=== PATIENT | male | born 1945 | race Caucasian/White ===

== ENCOUNTER 2018-08-20 10:50 | Day surgery (SDC) | payer MEDICARE, OTHER, SELFPAY ==
--- NOTE | 2018-08-20 | DI.RAD.S_ITS ---
PROCEDURE: XR LUMBAR SPINE 2-3V INDICATIONS: MICRODISCECTOMY TECHNIQUE: 2 views of the lumbar spine were acquired. COMPARISON: None. FINDINGS: Bones: 5 [id number] vertebrae are present. There is normal bony alignment. No vertebral body compression fractures. No suspicious bony lesions. The access port is located to the left of midline at the L2-L3 posterolateral facet joint level. Soft tissues: Overlying bowel gas pattern is normal. No suspicious soft tissue calcifications. IMPRESSION: L2-L3 left posterolateral port positioning for microdiscectomy. Dictated by: Carlos Cr M.D. on 08/25/2018 at 14:43 Approved by: Carlos Cr M.D. on 08/25/2018 at 15:19
[2018-08-20 11:18] VITALS: BP 143/92; PULSE 84; RESP 16; TEMP 36.6; O2SAT 97; BMI 30.2
--- NOTE | 2018-08-20 12:20 | PM.PREOP ---
Pre-operative Note Interval Note Pre-op Check: Yes History & Physical Reviewed by Physician, Yes Exam Performed and Yes History & Physical exam performed today by Physician Changes: No
--- NOTE | 2018-08-20 12:32 | SUR.OPER ---
Prone on spine table, head in foam head support, padded chest and pelvic supports, gel pad at knees, lower legs supported by pillows; nipples, genitalia and toes free of pressure, arms secured on foam padded arm boards at <90 degrees abduction. Tape over blanket at thigh secured to table.
[2018-08-20] MEDS: CEFAZOLIN 2 GM/100 ML FROZ.PIGGY IV (12:37)
[2018-08-20] MEDS: methylPREDNISolone acet DEPO 40 MG/ML VIAL INJ (13:16)
[2018-08-20] MEDS: BUPIVACAINE 0.25% W/ EPI VIAL 30 ML INJ (13:16)
[2018-08-20 14:00] VITALS: BP 128/85; PULSE 78; RESP 14; TEMP 36.9; O2SAT 96
--- NOTE | 2018-08-20 14:00 | P.OP_ITS ---
Operative Date/Time/Diagnoses Date of procedure: 08/20/18 Time of procedure: 12:55 Pre-op diagnosis: 1. L2-3 spinal stenosis 2. L2-3 spondylosis with radiculopathy Post-op diagnosis: same Procedure & Clinicians Procedure: 1. L2-3 laminectomy with bilateral partial facetectomies 2. Utilization of microsurgical technique and operating microscope Same procedure as scheduled: Yes Indications: Patient has been having chronic back pain and worsening lumbar radiculopathy. Patient failed multiple conservative management with worsening pain weakness and numbness in her lower extremity. Patient has been having difficulty performing activity of daily living. After discussing risks benefits of treatment options, patient elected proceed with surgery. Surgeon: Roderick Subramanian Accounts Payable Coordinator: Nancy Aguilar Click Yes if Unassisted: No Anesthesia Type: General Operative Notes Closure Type: primary Specimen(s): none sent Estimated Blood Loss (mL): 10 Blood products transfused: none Procedure in detail: Patient was seen in the preoperative area. Risks and benefits of the surgery was discussed with the patient. Informed consent was obtained from the patient and placed in the chart. Surgical site was marked. Patient was taken to the operative room. General anesthesia was administered. Prophylactic antibiotic was given to the patient less than 30 min before the incision was made. Patient was placed into a prone position on the Jasbir table. Patient's back was then prepped and draped in the sterile fashion. Time- out was performed at this time. Using AP and lateral C-arm imaging the interval between L2-3 was identified and marked on patient's back. A 1 inch incision 1 in from midline was made on the left side. The fascia was incised in line with skin incision. Globus MARS retractors was placed inside the incision and docked onto the L2 lamina. Using microsurgical technique and operating microscope, a L2-3 laminectomy was performed using a Kerrison rongeur. Liagamentum flavum was resected at the site of the laminotomy. Either side of the dura was exposed. Bilateral partial facetcomies was performed to further decompress the lateral recess. After the laminectomy was completed, the area medial lateral superior and inferior to the area of the laminectomy was inspected and explored using a micro curette. No other impinging structure was identified. The wound was then irrigated with sterile normal saline. 40 mg Depo-Medrol was placed into the epidural space. The deep fascia was closed with 1-0 Vicryl. The subcutaneous tissue was closed with 2-0 Vicryl. The skin was closed with 4- 0 Monocryl. Patient tolerated the procedure well. There were no complications. Patient was transferred recovery room in stable condition. Complications: none Condition: stable Disposition: same day surgery Plan for aftercare: discharge to home
[2018-08-20 14:05] VITALS: BP 125/90; PULSE 76; RESP 14; TEMP 36.9; O2SAT 96
[2018-08-20 14:10] VITALS: BP 131/89; PULSE 76; RESP 14; TEMP 36.6; O2SAT 97
[2018-08-20 14:15] VITALS: BP 118/82; PULSE 76; RESP 14; TEMP 36.6; O2SAT 98
[2018-08-20 14:29] VITALS: BP 120/78; PULSE 80; RESP 14; TEMP 36.6; O2SAT 96
== END 2018-08-20 14:40 | disposition home or self-care (01) ==
PROVIDERS: PCP Family Medicine; Visit Provider Orthopaedic Surgery Orthopaedic Surgery of the Spine
PROC: (CPT 63047; principal; 2018-08-20 13:45)
DX: M48.061 Spinal stenosis, lumbar region without neurogenic claudication (principal); M47.816 Spondylosis without myelopathy or radiculopathy, lumbar region; Z87.891 Personal history of nicotine dependence; Z98.890 Other specified postprocedural states
CPT/HCPCS: 63047; 72100; 76000; J0690; J1030; J1100; J2250; J2405; J2704; J3010

== ENCOUNTER 2019-06-17 07:38 | Inpatient (IN) | payer MEDICARE, OTHER, SELFPAY ==
[2019-06-03 09:51] VITALS: BMI 29.2
[2019-06-17] VITALS (17 sets, daily range): BP systolic 108–153; BP diastolic 66–88; PULSE 60–96; RESP 12–18; TEMP 35.9–37; O2SAT 94–99; BMI 29.2
--- NOTE | 2019-06-17 | DI.RAD.S_ITS ---
PROCEDURE: XR LUMBAR SPINE 2-3V INDICATIONS: L3-4 hemilaminectomy; L5-S1 TLIF w/posterior instru TECHNIQUE: 2 views of the lumbar spine were acquired. COMPARISON: [facility], , XR LUMBAR SPINE 2-3V, 08/20/2018, 13:10. FINDINGS: Spot fluoroscopic intraoperative images demonstrating posterior spinal fixation at L5-S1 and interbody cage graft. There is expected intraoperative alignment. Dictated by: Lazarus Brooks M.D. on 06/17/2019 at 11:19 Approved by: Lazarus Brooks M.D. on 06/17/2019 at 11:20
[2019-06-17] MEDS: LACTATED RINGERS 1,000 ML 42 ML IV ×2 (08:10→09:43)
[2019-06-17] MEDS: CEFAZOLIN 2 GM/100 ML FROZ.PIGGY IV ×2 (08:46→17:13)
[2019-06-17] MEDS: BUPIVACAINE 0.25% W/ EPI 30 ML VIAL INJ (09:41)
[2019-06-17] MEDS: BUPIVACAINE LIPOSOME 266 MG/20 ML VIAL INJ (09:42)
--- NOTE | 2019-06-17 11:38 | PM.OP.1 ---
Operative Date/Time/Diagnoses Date of procedure: 06/17/19 Time of procedure: 07:54 Pre-op diagnosis: 1. L4-5, L5-S1 spinal stenosis 2. L5-S1 hx of laminectomy with epidural scarring 3. L5-S1 spondylosis with radiculopathy Post-op diagnosis: same Procedure & Clinicians Procedure: 1. L5-S1 Postero-lateral and posterior interbody fusion 2. L5-S1 interbody cage placement. 3. L5-S1 decompressive laminectomy with bilateral facetecomies 4. L5-S1 Posterior non-segmental instrumentation 5. L4-5 hemilainectomy 6. Mineral of bone marrow from iliac crest 7. Utilization of microsurgical technique and operating microscope Same procedure as scheduled: Yes Indications: Patient has been having chronic back pain and worsening lumbar radiculopathy. Patient failed multiple conservative management with worsening pain weakness and numbness in her lower extremity. Patient has been having difficulty performing activity of daily living. After discussing risks benefits of treatment options, patient elected proceed with surgery. Surgeon: Roderick Subramanian Consulting Solution Manager: Barb Tang Click Yes if Unassisted: No Anesthesia Type: General Operative Notes Closure Type: primary Specimen(s): none sent Prosthetic devices, grafts, tissues, transplants, or devices: Globus revolve screws, Rise cage Applied: catheter Estimated Blood Loss (mL): 50 Blood products transfused: none Procedure in detail: Patient was seen in the preoperative area. Risks and benefits of the surgery was discussed with the patient. Informed consent was obtained from the patient and placed in the chart. Surgical site was marked. Patient was taken to the operative room. General anesthesia was administered. Prophylactic antibiotic was given to the patient less than 30 min before the incision was made. Patient was placed into a prone position on the Jasbir table. Patient's back was then prepped and draped in the sterile fashion. Time-out was performed at this time. Using AP and lateral C-arm imaging the interval between L4-5 L5-S1 was identified and marked on patient's back. A 2 inch incision 2 in from midline was made on the leftight side first. The fascia was incised in line with skin incision. Globus MARS retractors was placed inside the incision and docked onto the L5 lamina. Using microsurgical technique and operating microscope, a L5 laminectomy and L5-S1 facetectomy was performed using a Kerrison rongeur. The disc space at L5-S1 was identified. And a total diskectomy was performed at L5-S1 level. The endplates were decorticated using a rasp and shaver. The total diskectomy and decortication was performed at L5-S1 level in order to to accomplish a L5-S1 fusion. The local bone from the laminectomy and facetectomy was saved for local bone grafting. After the total diskectomy and decortication was completed, Bio4 bone graft material was combined with local bone that was harvested earlier. At this time, a separate skin is incision was made over the iliac crest. A Jamshidi needle was inserted into the iliac crest through a separate skin incision. 5 cc of bone marrow aspiration was obtained through the separate skin incision using a Jamshidi needle from the iliac crest. The bone marrow aspiration was combined with local bone and the Bio4 bone grafting material. The bone grafting material was placed into the L5-S1 interbody space along with a expandable cage. The cage was expanded to its maximum height using the torque limiting screwdriver. At this time the MARS retractor was redirected over the L4 lamina. Using microsurgical technique and operating microscope, a L4-5 heminectomy was performed using the Kerrison rongeur. The ligamentum flavum was also resected at the side of the hemilaminectomy for further decompression of the epidural space. At this time a mirror image incision was made on the right side. The fascia was incised in line with the skin incision. Globus MARS retractor was inserted and docked onto the L5-S1 posterolateral gutter. Using the power drill, posterior-lateral decortication was performed at L5-S1 level until bleeding cortical bone was identified. The remaining bone grafting material was placed into the L5-S1 posterior lateral gutter he order to accomplish posterolateral fusion at the L5-S1 level. Using the double C-arm technique, pedicle screws were placed into the L5 and S1 pedicles bilaterally. This was done by placing the Jamshidi needle into the pedicles, then placing the guidewires over the Jamshidi needle, and finally placing the cannulated screws over the guidewires bilaterally. After the pedicle screws were placed, 2 titanium rods was locked into the heads of the pedicle screws using locking caps and torque limiting screwdriver. After all the hardware was placed, and confirmed with AP and lateral C-arm imaging, the wound was then irrigated with sterile normal saline and packed with Ray-Terrell gauze for 3 min to accomplish hemostasis. After the gauze was removed the deep fascia was closed with #1 Vicryl suture. The subcutaneous layer was closed with 2-0 Vicryl. The skin was closed with skin mulugeta. Patient tolerated the procedure well. There were no complications.
--- NOTE | 2019-06-17 11:42 | P.OP_ITS ---
Operative Date/Time/Diagnoses Date of procedure: 06/17/19 Time of procedure: 07:54 Pre-op diagnosis: 1. L4-5, L5-S1 spinal stenosis 2. L5-S1 hx of laminectomy with epidural scarring 3. L5-S1 spondylosis with radiculopathy Post-op diagnosis: same Procedure & Clinicians Procedure: 1. L5-S1 Postero-lateral and posterior interbody fusion 2. L5-S1 interbody cage placement. 3. L5-S1 decompressive laminectomy with bilateral facetecomies 4. L5-S1 Posterior non-segmental instrumentation 5. L4-5 hemilainectomy 6. Adona of bone marrow from iliac crest 7. Utilization of microsurgical technique and operating microscope Same procedure as scheduled: Yes Indications: Patient has been having chronic back pain and worsening lumbar radiculopathy. Patient failed multiple conservative management with worsening pain weakness and numbness in her lower extremity. Patient has been having difficulty performing activity of daily living. After discussing risks benefits of treatment options, patient elected proceed with surgery. Surgeon: Roderick Subramanian Management Internship: Barb Tang Click Yes if Unassisted: No Anesthesia Type: General Operative Notes Closure Type: primary Specimen(s): none sent Prosthetic devices, grafts, tissues, transplants, or devices: Globus revolve screws, Rise cage Applied: catheter Estimated Blood Loss (mL): 50 Blood products transfused: none Procedure in detail: Patient was seen in the preoperative area. Risks and benefits of the surgery was discussed with the patient. Informed consent was obtained from the patient and placed in the chart. Surgical site was marked. Patient was taken to the operative room. General anesthesia was administered. Prophylactic antibiotic was given to the patient less than 30 min before the incision was made. Patient was placed into a prone position on the Jasbir table. Patient's back was then prepped and draped in the sterile fashion. Time- out was performed at this time. Using AP and lateral C-arm imaging the interval between L4-5 L5-S1 was identifi ed and marked on patient's back. A 2 inch incision 2 in from midline was made on the leftight side first. The fascia was incised in line with skin incision. Globus MARS retractors was placed inside the incision and docked onto the L5 lamina. Using microsurgical technique and operating microscope, a L5 laminectomy and L5-S1 facetectomy was performed using a Kerrison rongeur. The disc space at L5-S1 was identified. And a total diskectomy was performed at L5- S1 level. The endplates were decorticated using a rasp and shaver. The total diskectomy and decortication was performed at L5-S1 level in order to to accomplish a L5-S1 fusion. The local bone from the laminectomy and facetectomy was saved for local bone grafting. After the total diskectomy and decortication was completed, Bio4 bone graft material was combined with local bone that was harvested earlier. At this time, a separate skin is incision was made over the iliac crest. A Jamshidi needle was inserted into the iliac crest through a separate skin incision. 5 cc of bone marrow aspiration was obtained through the separate skin incision using a Jamshidi needle from the iliac crest. The bone marrow aspiration was combined with local bone and the Bio4 bone grafting material. The bone grafting material was placed into the L5-S1 interbody space along with a expandable cage. The cage was expanded to its maximum height using the torque limiting screwdriver. At this time the MARS retractor was redirected over the L4 lamina. Using microsurgical technique and operating microscope, a L4-5 heminectomy was performed using the Kerrison rongeur. The ligamentum flavum was also resected at the side of the hemilaminectomy for further decompression of the epidural space. At this time a mirror image incision was made on the right side. The fascia was incised in line with the skin incision. Globus MARS retractor was inserted and docked onto the L5-S1 posterolateral gutter. Using the power drill, posterior- lateral decortication was performed at L5-S1 level until bleeding cortical bone was identified. The remaining bone grafting material was placed into the L5-S1 posterior lateral gutter he order to accomplish posterolateral fusion at the L5- S1 level. Using the double C-arm technique, pedicle screws were placed into the L5 and S1 pedicles bilaterally. This was done by placing the Jamshidi needle into the pedicles, then placing the guidewires over the Jamshidi needle, and finally placing the cannulated screws over the guidewires bilaterally. After the pedicle screws were placed, 2 titanium rods was locked into the heads of the pedicle screws using locking caps and torque limiting screwdriver. After all the hardware was placed, and confirmed with AP and lateral C-arm imaging, the wound was then irrigated with sterile normal saline and packed with Ray-Terrell gauze for 3 min to accomplish hemostasis. After the gauze was removed the deep fascia was closed with #1 Vicryl suture. The subcutaneous layer was closed with 2-0 Vicryl. The skin was closed with skin mulugeta. Patient tolerated the procedure well. There were no complications.
[2019-06-17] MEDS: LORazepam 2 MG/ML INJ 0.25 MG IV ×2 (11:45→11:50)
[2019-06-17] MEDS: HYDROMORPHONE 2 MG INJ 0.5 MG IV ×4 (11:45→12:00)
--- NOTE | 2019-06-17 11:46 | PM.PREOP ---
Pre-operative Note Interval Note History & Physical reviewed/Exam performed by Physician: Yes Changes to H&P: No
[2019-06-17] MEDS: fentaNYL 100 MCG/2 ML INJ 50 MCG IV ×2 (12:15→12:20)
--- NOTE | 2019-06-17 14:19 | PC.NURSE ---
Pt with low back surgery, dressing to lower back is cdi. He is awake and oriented. He denies pain. Had 2 apple juices down in recovery and has asked for some coffee. Put on 1.5l of o2 as he was dropping down to 84-88% when falling asleep. Pt denies nausea. CMS wnl and ppx2.
[2019-06-17] MEDS: SODIUM CHLORIDE 0.9% 1,000 ML 100 ML IV (14:47)
[2019-06-17] MEDS: OXYCODONE IR 5 MG TABLET 10 MG PO ×2 (15:31→20:49)
--- NOTE | 2019-06-17 17:08 | PT.IIE ---
Current Diagnoses Other spondylosis with radiculopathy, lumbosacral region (06/17/19) Spinal stenosis, lumbar region without neurogenic claudication (06/17/19) Postlaminectomy syndrome, not elsewhere classified (06/17/19) Surgery Performed Operation Date: 06/17/19 08:45 Actual Procedures p L4-5 Hemilaminectomy; L5-S1 TLIF w/Posterior Instru.(Not Applicable) - Roderick Subramanian MD Surgical History (Last Updated 06/03/19 @ 10:25 by Dary Marks RN) Hx of hernia repair (Acute) Hx of laminectomy (Acute 08/20/18) Hx of laminectomy (Acute ~1987) S/P cervical spinal fusion (Acute 01/20/18) History of appendectomy (Acute) Medical History (Last Updated 06/03/19 @ 10:25 by Dary Marks RN) Arthritis (Acute) BPH with urinary obstruction (Acute) Back pain (Acute) Chronic pain of both shoulders (Acute) Degenerative disc disease (Acute) Diverticulitis (Acute) History of compression fracture of spine (Acute) Impaired fasting glucose (Acute) Lumbar radiculopathy (Acute) Polyp of colon (Acute) Pure hypercholesterolemia (Acute) Sciatica, right side (Acute) Sinus bradycardia (Acute) Spasmodic dysphonia (Acute) Physical Therapy Inpatient Evaluation/Re-Eval M1 PT/OT-IP Prior Functional Status Start: 06/17/19 16:38 Freq: NEEDED Status: Active Protocol: Document 06/17/19 16:38 AW (Rec: 06/17/19 17:07 AW [id number]) Medical Review Prior Functional Status Medical History Reviewed Yes Diet/Fluid Consistency Regular Communication Pt is able to make needs known . Mobility and Gait Pt reports independence with all funtional mobility Activities of Daily Living and IADL's Indpendent, including driving, per pt Social History Household Members spouse Living Arrangements House Number of Floors (Floors) One Floor Number of Stairs To Enter/Railing? 1 ANGÉLICA with R handrail ascending Home Environment High Toilet Walk in Shower Home Equipment Front Wheel Walker Straight Cane Hand Held Shower Grab Bars Near Toilet Grab Bars In Shower Employment Status Retired Additional Social History Comment Pt lives with his spouse in a single level home in [place] M2 PT-IP Current Condition Start: 06/17/19 16:38 Freq: NEEDED Status: Active Protocol: Document 06/17/19 16:38 AW (Rec: 06/17/19 17:07 AW [id number]) Physical Therapy Current Condition Current Condition Evaluation Date 06/17/19 Treatment Diagnosis L4-5, L5-S1 spinal stenosis s/ p L4-5 hemilami and L5-S1 TLIF Onset Date 06/17/19 Precautions Lumbar Precautions Log Roll No Twisting Limit Bending Lifting Restriction of 10 lbs Gait Belt above Incisional Area M3 PT-IP Subjective Start: 06/17/19 16:38 Freq: NEEDED Status: Active Protocol: Document 06/17/19 16:38 AW (Rec: 06/17/19 17:07 AW [id number]) Subjective Physical Therapy Visit Type Type Initial Evaluation Visit Start Time 16:02 Visit Stop Time 16:35 Total Visit Minutes 33 Number of DANCE TEACHER Visits 0 Physical Therapy Visit Comments Patient Comments Pt is feeling good and ready to get out of bed. Patient Goals Pt would like to return home with his 's assistance as needed Therapy Pain Assessment Pain When Pain Assessed During Mobility Pain Present Pain Present Pain Reported Location Lower Back Intensity 2 Scale Used Numeric (1 - 10) M4 PT-IP Mobility and Gait Start: 06/17/19 16:38 Freq: NEEDED Status: Active Protocol: Document 06/17/19 16:38 AW (Rec: 06/17/19 17:07 AW [id number]) PT-Bed Mobility Assessment Rolling Type of Rolling Log Rolling Level of Assist Standby Assistance Supine to Sit Supine to Sit Standby Assistance Sit to Supine Sit to Supine Standby Assistance Scooting Scooting to Edge of Bed Standby Assistance PT-Transfer Assessment Sit to and From Stand Sit to and from Stand Standby Assistance Equipment Transfer Assistive Device Gait Belt Orthotic/Prosthetic Devices or Brace: No Transfers Transfer Destination Chair Transfer Technique Stand Step Pivot Transfer Ability Level of Assist Standby Assistance Comments Mobility Comments Pt is guarded with movement, requiring SBA for all bed mobility and transfers. Gait Assessment Gait Gait Assistance Required: Standby Assistance Distance (Feet) 200 Assistive Devices Assistive Device Gait Belt Orthotic/Prosthetic Devices or Brace: No Gait Deviations General Gait Pattern Antalgic Decreased Stride Length Decreased Feet Clearance Factors Limiting Gait Function Factors Limiting Gait Function Pain Comments Gait Comments Pt has good awareness of spinal precautions, limiting his trunk rotation. Movement is guarded, requiring SBA at all times. PT-Balance Assessment Sitting Balance and Reactions Static Sitting Balance Ability Good Dynamic Sitting Balance Ability Good Standing Balance and Reactions Static Standing Balance Ability Good Dynamic Standing Balance Ability Fair M5 PT-IP Objective Assessments Start: 06/17/19 16:38 Freq: NEEDED Status: Active Protocol: Document 06/17/19 16:38 AW (Rec: 06/17/19 17:07 AW [id number]) Orientation Orientation/Cognition Level of Alertness Alert Orientation Name Month Place Situation Language Function Ability No Deficits Noted Safety Awareness Understands Safety Issues Memory Description No Deficits Noted Gross Range of Motion Upper Extremity ROM Assessment Within Functional Limits Lower Extremity ROM Assessment Within Functional Limits Strength Upper Extremity Strength Assessment Within Functional Limits Lower Extremity Strength Assessment Within Functional Limits Coordination Assessment Gross Coordination Gross Coordination WNL Sensation Assessment Sensation Gross Sensation WNL Light Touch Impaired Comments Sensation Comments Absent light touch sensation in distribution of left metatarsal heads. Muscle Tone Muscle Tone WNL Yes M6 PT-IP Treatment Start: 06/17/19 16:38 Freq: NEEDED Status: Active Protocol: Document 06/17/19 16:38 AW (Rec: 06/17/19 17:07 AW [id number]) Physical Therapy Treatment Education Education Provided Precautions Post-Op Packet Safety M7 PT-IP Assessment and Plan Start: 06/17/19 16:38 Freq: NEEDED Status: Active Protocol: Document 06/17/19 16:38 AW (Rec: 06/17/19 17:07 AW [id number]) PT Summary Assessment and Plan Potential Rehabilitation Potential Good Status of Condition at Evaluation Stable Summary Impairments Pain ROM Bed Mobility Transfers Gait Assessment Summary Pt is a 73 yo man with history of multiple spinal surgeries seen on POD0 following L4-5 hemilaminectomy and L5-S1 TLIF . Pt reports PLOF of independent functional mobility and ADL's. PT provided education on log rolling technique, spinal precautions. He was able to perform log roll, all transfers, and gait with SBA required due to some hesitation to move and guardedness. PT recommendation is for discharge to home with spouse assist as needed. Goals Bed Mobility Goal Independent Transfer Goal Independent Gait Goal Independent Gait Distance 300 feet Other Goals Pt will ascend/descend 1 step with R hand rail independently . Days to Meet Goals 2 Frequency of Treatment Frequency Of Treatment Twice a Day Treatment Plan Physical Therapy Treatment Plan Bed Mobility Training Transfer Training Gait Training Therapeutic Exercise Balance Retraining Post Op Education Discharge Planning Hot or Cold Pack Neuromuscular Re-ed Coordination Retraining Manual Therapy Recommendations To Nursing Amount of Assist Needed Standby Assistance Discharge Recommendations PT Discharge Recommendations Home with Assistance
--- NOTE | 2019-06-17 17:21 | PC.NURSE ---
Addendum entered by Sarah Cherry R.N. 06/17/19 23:32: Voiding without difficulty standing at bedside with standby assistance. Reports pain well controlled with oxycodone. Currently on left side in bed with pillow between legs and behind back. Refuses scd's overnight. No change in neurovascular status this evening shift. Original Note: Pt awake and alert in bed @ beginning of shift. Rates incisional pain to back 4/10. Denies nausea and has eaten cup of pudding. Administered 10 mg oxycodone as per emar. Pt desires to sit up @ bedside to void. Instructed pt in log rolling technique and pt demonstrates good technique. Voids into urinal quantity sufficient. P.T. in to see patient and pt ambulatory in hallway with therapist. Now up in recliner taking general diet without difficulty. Pt rates pain 1.5. Admits to baseline left foot numbness unchanged with this surgery.
[2019-06-17] MEDS: GABAPENTIN 300 MG CAPSULE 900 MG PO (20:37)
[2019-06-17] MEDS: DOCUSATE 100 MG CAPSULE PO (20:37)
[2019-06-17] MEDS: SIMVASTATIN 20 MG TABLET PO (20:38)
[2019-06-17] MEDS: SENNOSIDES 8.6 MG TABLET 17.2 MG PO (20:38)
[2019-06-17] MEDS: ACETAMINOPHEN 325 MG TABLET 650 MG PO (20:38)
[2019-06-18] MEDS: CEFAZOLIN 2 GM/100 ML FROZ.PIGGY IV (00:02)
[2019-06-18] MEDS: SODIUM CHLORIDE 0.9% 1,000 ML 100 ML IV (00:03)
[2019-06-18 05:15] VITALS: BP 142/85; PULSE 72; RESP 16; TEMP 36.6; O2SAT 97
--- NOTE | 2019-06-18 06:05 | PC.NURSE ---
Pt denies pain overnight. Denied need for pain medication. Pt refused SCDs overnight, rationale provided, need to prevent VTE. Pt logrolls in bed with assist. Up to BR [id number] assist with FWW. Pt up in bed, drinking coffee.CMS intact. Pt reports baseline left foot numbness, no changes to left foot.
[2019-06-18] MEDS: OXYCODONE IR 5 MG TABLET 10 MG PO ×2 (06:51→11:36)
[2019-06-18 08:00] VITALS: BP 114/77; PULSE 89; RESP 18; TEMP 36.6; O2SAT 96
[2019-06-18] MEDS: DOCUSATE 100 MG CAPSULE PO (08:53)
[2019-06-18] MEDS: CHOLECALCIFEROL (VITAMIN D3) 1,000 UNIT TABLET 1000 UNIT PO (08:54)
--- NOTE | 2019-06-18 10:52 | PC.NURSE ---
Addendum entered by Kristin Jean-Baptiste R.N. 06/18/19 12:02: DC - prior to transport, given 10mg oxycodone for pain 2 on scale 0/10, reviewed dc instructions, per PA, pt has pain medications at home and no new scripts provided, belongings gathered, including cell phone and scrap charger, clothing, glasses and hearing aids, assisted to wc and escorted by float rn to spouse's car. Addendum entered by Kristin Jean-aBptiste R.N. 06/18/19 11:09: ITEG - removed barrier dsg, parallel mulugeta intact, some surrounding bruising, no drainage or bleeding, replaced with coversite. 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
--- NOTE | 2019-06-18 10:57 | PT.IPTN ---
Current Diagnoses Other spondylosis with radiculopathy, lumbosacral region (06/17/19) Spinal stenosis, lumbar region without neurogenic claudication (06/17/19) Postlaminectomy syndrome, not elsewhere classified (06/17/19) Surgery Performed Operation Date: 06/17/19 08:45 Actual Procedures p L4-5 Hemilaminectomy; L5-S1 TLIF w/Posterior Instru.(Not Applicable) - Roderick Subramanian MD Physical Therapy Treatment Note M2 PT-IP Current Condition Start: 06/17/19 16:38 Freq: NEEDED Status: Active Protocol: Document 06/17/19 16:38 AW (Rec: 06/17/19 17:07 AW [id number]) Physical Therapy Current Condition Current Condition Evaluation Date 06/17/19 Treatment Diagnosis L4-5, L5-S1 spinal stenosis s/ p L4-5 hemilami and L5-S1 TLIF Onset Date 06/17/19 Precautions Lumbar Precautions Log Roll No Twisting Limit Bending Lifting Restriction of 10 lbs Gait Belt above Incisional Area M3 PT-IP Subjective Start: 06/17/19 16:38 Freq: NEEDED Status: Active Protocol: Document 06/18/19 10:40 AW (Rec: 06/18/19 10:54 AW [id number]) Subjective Physical Therapy Visit Type Type Treatment Note Visit Start Time 09:20 Visit Stop Time 09:34 Total Visit Minutes 14 Number of CLUTCH INSPECTOR Visits 0 Physical Therapy Visit Comments Patient Comments Pt is agreeable to participate in therapy. Patient Goals Ready to go home Therapy Pain Assessment Pain When Pain Assessed During Mobility Pain Present Pain Present Pain Reported Location Lower Back Intensity 2 Scale Used Numeric (1 - 10) Description Aching M4 PT-IP Mobility and Gait Start: 06/17/19 16:38 Freq: NEEDED Status: Active Protocol: Document 06/18/19 10:40 AW (Rec: 06/18/19 10:54 AW [id number]) PT-Bed Mobility Assessment Rolling Type of Rolling Log Rolling Level of Assist Independent Supine to Sit Supine to Sit Independent Sit to Supine Sit to Supine Independent Scooting Scooting to Edge of Bed Independent PT-Transfer Assessment Sit to and From Stand Sit to and from Stand Independent Equipment Transfer Assistive Device Gait Belt Orthotic/Prosthetic Devices or Brace: No Comments Mobility Comments Pt performed bed mobility and sit to stand transfers with no need for assistance. Gait Assessment Gait Gait Assistance Required: Independent Distance (Feet) 300 Assistive Devices Assistive Device Gait Belt Orthotic/Prosthetic Devices or Brace: No Gait Deviations General Gait Pattern Within Normal Limits Comments Gait Comments Pt ambulated with good speed and increased stride length compared with eval. Stair Climbing Assessment Evaluation Level of Assist On Stairs Independent Devices Stair Climbing Assistive Devices Right Railing Technique/Endurance Stair Climbing Direction Ascend and Descend Stair Climbing Technique Step Over Step Number of Steps Climbed 3 Stair Climbing Set # Repetitions (reps) 1 Comments Stair Climbing Comments Pt has only 1 ANGÉLICA at home. PT-Balance Assessment Sitting Balance and Reactions Static Sitting Balance Ability Good Dynamic Sitting Balance Ability Good Standing Balance and Reactions Static Standing Balance Ability Good Dynamic Standing Balance Ability Good M5 PT-IP Objective Assessments Start: 06/17/19 16:38 Freq: NEEDED Status: Active Protocol: Document 06/17/19 16:38 AW (Rec: 06/17/19 17:07 AW [id number]) Orientation Orientation/Cognition Level of Alertness Alert Orientation Name Month Place Situation Language Function Ability No Deficits Noted Safety Awareness Understands Safety Issues Memory Description No Deficits Noted Gross Range of Motion Upper Extremity ROM Assessment Within Functional Limits Lower Extremity ROM Assessment Within Functional Limits Strength Upper Extremity Strength Assessment Within Functional Limits Lower Extremity Strength Assessment Within Functional Limits Coordination Assessment Gross Coordination Gross Coordination WNL Sensation Assessment Sensation Gross Sensation WNL Light Touch Impaired Comments Sensation Comments Absent light touch sensation in distribution of left metatarsal heads. Muscle Tone Muscle Tone WNL Yes M6 PT-IP Treatment Start: 06/17/19 16:38 Freq: NEEDED Status: Active Protocol: Document 06/18/19 10:40 AW (Rec: 06/18/19 10:54 AW [id number]) Physical Therapy Treatment Education Education Provided Precautions Post-Op Packet Safety M7 PT-IP Assessment and Plan Start: 06/17/19 16:38 Freq: NEEDED Status: Active Protocol: Document 06/18/19 10:40 AW (Rec: 06/18/19 10:54 AW [id number]) PT Summary Assessment and Plan Potential Rehabilitation Potential Excellent Status of Condition at Evaluation Stable Summary Impairments Pain ROM Assessment Summary Pt performed all bed mobility, transfers, and gait with no assist required. 4-Item Dynamic Gait Index: 10/08 with no appreciable change in gait speed/no path deviations with head turns; safe change in gait speed in fast and slow conditions with no increased need for assistance. Pt exhibited good stride length and no guarding during gait. No need for further skilled therapy. Pt is safe to discharge home. Goals Bed Mobility Goal Independent Transfer Goal Independent Gait Goal Independent Gait Distance 300 feet Other Goals Pt will ascend/descend 1 step with R hand rail independently . Days to Meet Goals 0 Frequency of Treatment Frequency Of Treatment Discharge Recommendations To Nursing Amount of Assist Needed Independent Discharge Recommendations PT Discharge Recommendations Home with Assistance
--- NOTE | 2019-06-18 10:58 | P.DS_ITS ---
History of Present Illness Date Patient Seen: 06/18/19 Time Patient Seen: 10:56 Chief complaint: [id number] Narrative: Hospital day 4 2, postop day 1 following L4-5 hemilaminectomy, L5-S1 TLIF, cage, posterior screw fixation by Dr. Subramanian. Patient has remained stable p ostoperatively. Pain controlled with oxycodone. He states his preoperative leg symptoms have resolved. Discharge Providers Date of admission: 06/17/19 07:38 Discharge Date: 06/18/19 Primary care physician: Jonathan Roca MD Consults: 06/17/19 14:00 Consult to Occupational Therapy Evaluate & Treat Comment: Physician Instructions: Evaluate and treat Consult to Physical Therapy Evaluate & Treat Comment: Physician Instructions: Evaluate and Treat Discharge provider: Jb Mccarthy PA-C Summary Discharge Diagnosis: Status post L4-5 hemilaminectomy, L5-S1 TLIF, cage, posterior screw fixation. Hospital Course: Patient brought to hospital on 06/17/2019 for above noted surgery. Remained stable postoperatively. Progressed well with physical therapy and discharged home on postop day 1. Status at Discharge Cognitive/behavioral status at discharge: oriented Functional status at discharge: uses cane/walker Overall status at discharge: patient is progressing back to baseline Time Spent with Patient Less than 30 minutes Exam Vital Signs (past 8 hours): - 06/18/19 05:15 06/18/19 08:00 Temperature 97.8 F 98 F Pulse Rate 72 89 Respiratory Rate 16 18 Blood Pressure 142/85 H 114/77 Pulse Oximetry 97 96 Oxygen Delivery Method Room Air Oxygen Flow Rate 1.5 Narrative Exam Narrative: Alert, oriented no acute distress resting in bed. Back. Dressing to lumbar area has serosanguineous drainage. No signs of infection or inflammation. Legs. No calf pain or swelling. Pulses symmetrical. Good sensation to touch to lower legs. Good strength on foot dorsiflexion plantar flexion. Discharge Plan Discharge Plan Patient Disposition: Home Discharge comment: Discharge home today after cleared by PT. Patient has postoperative pain medication for oxycodone at home. Discharge Med Rec/Prescriptions Prescriptions: Continued gabapentin [Neurontin] 300 MG capsule 900 mg PO HS Qty: 0 RF: 0 omega 6-wju-rdr-fish oil [Fish Oil] 1,000 MG capsule 1,000 mg PO BID Qty: 0 RF: 0 aspirin 81 mg Tablet,Delayed Release (Dr/Ec) 81 mg PO DAILY RF: 0 garlic 1,250 mg Tablet 1,250 mg PO DAILY RF: 0 methocarbamol 750 mg Tablet 750 mg PO BID RF: 0 clotrimazole 1 % Cream 1 applic TOPICAL BID RF: 0 cholecalciferol (vitamin D3) 1,000 unit Capsule 1,000 unit PO DAILY RF: 0 Acetaminophen PM Extra Str 500 mg PO BEDTIME RF: 0 meloxicam 15 mg Tablet 15 mg PO DAILY RF: 0 simvastatin 20 mg Tablet 20 mg PO BEDTIME RF: 0 acetaminophen 500 mg Capsule 1,000 mg PO QAM RF: 0 Follow up/Referrals: Jonathan Roca MD [Primary Care Provider] - Provider Discharge Instructions Diet: Diet as Tolerated Activity: Ambulate as tolerated. Avoid excessive bending or twisting of lumbar spine. Use walker as needed. No lifting or carrying more than 5-10 lb. Cold/Heat Therapy: Cold pack to lumbar area if needed. Skin/Wound/Dressing Care Report to your healthcare provider any signs of infection, such as:: chills, fever, night sweats, increased pain, unusual drainage and unusual redness Dressing: Keep CovRsite dressing in place until postop visit. Visit Report/Discharge Packet Instructions: DI for Transforaminal Lumbar Interbody Fusion Discharge Data Primary Care Provider: Jonathan Roca Attending Provider: Roderick Subramanian Admit Date/Time: 06/17/19 07:38 Quality VTE Deep Vein Thrombosis/Pulmonary Embolism Present on Admission: No
--- NOTE | 2019-06-18 11:58 | CM.IDA ---
Initial DCP Assessment Note: Pt is a 73 yo male, resident of [place], now POD#1 from spinal surgery w/ Dr Subramanian PCP: Jonathan Roca Payer: Medicare/[employer] for [employer] Reviewed chart, pt discussed in multidisciplinary rounds this morning. Therapy has cleared pt for return home w/family to assist and pt has planned for home, DC order from Orth[facility] has already been initiated this morning. No needs expected from DC planning team although will remain available in case this changes today. ALINA Hargrove Discharge Planning/Care Management CM Discharge Assessment Start: 06/18/19 11:56 Freq: Status: Active Protocol: Document 06/18/19 11:56 [facility] (Rec: 06/18/19 11:58 [facility] [id number]) Discharge Planning Assessment Assigned [employer] ALINA Adams DPOA/Assigned Designee Name Gaurav () Contact Information [phone] or [phone] Advance Directives? Yes Advance Directives on File Yes History Provided By Patient Significant Other Medical Record Prior Living Arrangements House Household Members spouse Type of transporation used prior to Drives own vehicle admit Independent with ADL's Yes Is patient alert and oriented? Yes Barriers to Discharge No Discharge Plan Home Transportation Arrangement Family Referrals Initiated None needed Review Status In Process
--- NOTE | 2019-06-18 12:05 | OT.IP.TRT ---
Current Diagnoses Other spondylosis with radiculopathy, lumbosacral region (06/17/19) Spinal stenosis, lumbar region without neurogenic claudication (06/17/19) Postlaminectomy syndrome, not elsewhere classified (06/17/19) Surgery Performed Operation Date: 06/17/19 08:45 Actual Procedures p L4-5 Hemilaminectomy; L5-S1 TLIF w/Posterior Instru.(Not Applicable) - Roderick Subramanian MD Occupational Therapy Treatment Note M3 OT- IP Subjective and Pain Start: 06/18/19 12:00 Freq: Status: Active Protocol: Document 06/18/19 12:01 [facility] (Rec: 06/18/19 12:05 [email or web address] [id number]) OT- Subjective Occupational Therapy Visit Type Type Administrative Note Notes Pt getting ready to leave as nursing doing discharge paperwork. Able to touch base with pt for ADL needs, suggested to stand for bowel hygiene , possible use of urinal at night, and reminders to take it slow. states will be there to assist for all needs. Pt may need a shower chair. No OT charge.
== END 2019-06-18 12:11 | disposition home or self-care (01) | DRG 455 ==
PROVIDERS: Admitting Provider Orthopaedic Surgery Orthopaedic Surgery of the Spine; PCP Family Medicine; Visit Provider Orthopaedic Surgery Orthopaedic Surgery of the Spine
PROC: 0SG30AJ Fusion of Lumbosacral Joint with Interbody Fusion Device, Posterior Approach, Anterior Column, Open Approach (ICD-10-PCS; principal; 2019-06-17 08:45)
DX: M48.07 Spinal stenosis, lumbosacral region (principal); M48.061 Spinal stenosis, lumbar region without neurogenic claudication; M47.27 Other spondylosis with radiculopathy, lumbosacral region; M96.1 Postlaminectomy syndrome, not elsewhere classified; Z87.891 Personal history of nicotine dependence
CPT/HCPCS: 72100; 76000; 97161; 97530; C1776; C9290; J0330; J0690; J1100; J1170; J2060; J2405; J2704; J3010